=== PATIENT | female | born 1955 | race Asian ===

== ENCOUNTER → 2016-09-09 16:41 | Outpatient (CLI) | payer OTHER ==
[2011-06-11 08:55] VITALS: BMI 19.5
== END | disposition home or self-care (01) ==
LOC: D.MAMMO 08-18 11:30
DX: Z12.31 Encounter for screening mammogram for malignant neoplasm of breast (principal)

== ENCOUNTER → 2019-07-13 10:00 | Outpatient (CLI) | payer OTHER ==
[2011-06-11 08:55] VITALS: BMI 19.5
== END | disposition home or self-care (01) ==
LOC: D.MAMMO 07-04 09:30
PROVIDERS: ATTEND Family Medicine
DX: Z12.31 Encounter for screening mammogram for malignant neoplasm of breast (principal)

== ENCOUNTER 2019-11-10 01:27 | Inpatient (IN) | payer OTHER ==
[~2019-11-10] VITALS: Ht 144.8 cm; Wt 47.5 kg
--- NOTE | ~2019-11-10 | HEMODYNAMI ---
PATIENT:ANDRE MITTAL MEDICAL RECORD: [id number] : 59 [facility] AD[facility]ION DATE: 11/10/19 Generatedon:11/10/201911:07 Patient name: ANDRE MITTAL Patient #: [id number] SSN: [id number] : 1955 Date of study: 11/10/2019 Page: Of Hemodynamic Procedure Report Patient Data Patient Demographics Procedure consent was obtained First Name: ANDRE Gender: Female Last Name: KYRIE : 1955 [facility] Initial: B Age: 64 year(s) Patient #: [id number] Race: SSN: [id number] Additional ID: [id number] Contact details Address: [address] [place] [address] [facility] State: [place] City: [place] Zip code: [address] Past Medical History History of disease Date Diagnosis Comments Hypertension Allergies: No known allergies Admission Admission Data Admission Date: 11/10/2019 Admission Time: 2:41 Admit Source: Other Insurance Payor: Private Room #: D.2119 health insurance Height (in.): 48 BSA: 1.16 (m2) Height (cm.): 121.92 BMI: 28.99 (kg/m2) Weight (lbs.): 95 Weight (kg.): 43.09 Lab Results Lab Result Date: 11/10/2019 Lab Result Time: 0:00 Biochemistry Name Units Result Min Max Creatinine mg/dl 1.2 --(---*)-- 0.6 1.3 eGFR ml/min 48 *-(----)-- 90 120 NONAFRICAN CBC Name Units Result Min Max Hematocrit % 40.8 -*(----)-- 42 54 Hemoglobin g/dl 14.7 --(-*--)-- 13.5 17.5 Procedure Procedure Types Cath Procedure Diagnostic Procedure LHC LH w/Coronaries Sedation Charges Moderate Sedation up to 15 minutes Peripheral Cath Diagnostic Procedure Senior Php Software Developer Peripheral Procedures Four Vessel Arteriogram Procedure Description Procedure Date Procedure Date: 11/10/2019 Procedure Start Time: 10:41 Procedure End Time: 11:02 Procedure Staff Name Function Dat Vaz MD Performing Physician Lola Garcia RT Monitor Raquel Neal RN Nurse Mana Seaman RT Scrub Indication Syncope Procedure Data Cath Procedure Fluoroscopy Diagnostic fluoroscopy Total fluoroscopy Time: 5.2 time: 5.2 min min Diagnostic fluoroscopy Total fluoroscopy dose: 310 dose: 310 mGy mGy Contrast Material Contrast Material Type Amount (ml) Isovue 300 102 Entry Location Entry Primary Successful Side Size Upsize Upsize Entry Closure Succes sful Closure Location (Fr) 1 (Fr) 2 (Fr) Remarks Device Remarks Femoral Right 5 Fr Exoseal artery Estimated blood loss: 5 ml Diagnostic catheters Device Type Used For End Catheter Placement MULTIPACK JL 4.0 5Fr Procedure catheter DIAGNOSTIC JL 3.5 5Fr Procedure catheter ([id number]) MULTIPACK 3DRC 5Fr Procedure catheter MULTIPACK Pigtail 5 Fr Procedure catheter Procedure Complications No complications Procedure Medications Medication Administration Route Dosage 0.9% NaCl I.V. 100 ml/hr Oxygen etCO2 Nasal cannula 2 l/min Lidocaine 2% added to field 20 Heparin Flush Bag added to field 2 bags (1000units/500ml NS) Versed I.V. 1 mg Fentanyl I.V. 25 mcg Versed I.V. 1 mg Fentanyl I.V. 25 mcg Hemodynamics Rest BSA: 1.16 (m2) HGB: 14.7 (g/dl) O2 Consumption: Estimated: 122.94 (ml/min) O2 Co nsumption indexed: Estimated:105.98 (ml/min/m) Heart Rate: 101 (bpm) Pressure Samples Time Site Value (mmHg) Purpose Heart Use Rate(bpm) 10:54 LV 114/3,8 Snapshot 77 Gradients Valve Time Site Site Mean SEP/DFP Peak To Heart Use 1 2 (mmHg) (sec/min) Peak Rate (mmHg) (bpm) Aortic 10:54 LV AO 77 Snapshots Pre Cath Intra NCS Post Cath Vital Signs Time Heart Resp SPO2 etCO2 NIBP (mmHg) Rhythm Pain Sedation Rate (ipm) (%) (mmHg) Status Level (bpm) 10:27:11 103 22 99 31 183/95(125) ST 0 (11) 10(A) , No pain 10:31:36 94 19 100 32.2 172/83(123) NSR 0 (11) 10(A) , No pain 10:35:58 95 24 100 34.4 172/81(123) NSR 0 (11) 10(A) , No pain 10:40:20 91 16 100 34.4 157/78(124) NSR 0 (11) 10(A) , No pain 10:44:42 80 13 100 18.6 131/63(100) NSR 0 (11) 10(A) , No pain 10:48:56 71 12 100 17.9 114/58(88) NSR 0 (11) 10(A) , No pain 10:53:02 73 14 100 11.2 110/63(91) NSR 0 (11) 10(A) , No pain 10:57:08 71 12 100 35.9 117/58(90) NSR 0 (11) 10(A) , No pain 11:01:18 72 15 100 29.2 107/54(89) NSR 0 (11) 10(A) , No pain Medications Time Medication Route Dose Verified Delivered Reason Notes Eff ectiveness by by 10:23:58 0.9% NaCl I.V. 100 Dat Raquel used for ml/hr Milind Ángel procedure MD SALAZAR 10:24:04 Oxygen etCO2 2 Dat Raquel used for Nasal l/min Milind Ángel procedure cannula RN 10:24:08 Lidocaine 2% added 20ml Dat Dat for local to vial [facility] anesthetic field MD RAI 10:24:14 Heparin Flush added 2 Dat Dat used for Bag to bags [facility] procedure (1000units/500ml field MD RAI NS) 10:41:01 Versed I.V. 1 mg Dat Raquel for Milind Ángel sedation MD SALAZAR 10:41:08 Fentanyl I.V. 25 Dat Raquel for mcg Milind Ángel sedation MD SALAZAR 10:47:00 Versed I.V. 1 mg Dat Raquel for Milind Ángel sedation MD SALAZAR 10:47:08 Fentanyl I.V. 25 Dat Raquel for mcg Milind Ángel sedation MD SALAZARdental technician Log Time Note 9:50:17 Informed consent obtained and on chart 9:51:20 Indication : Syncope 10:03:54 ACC Patient presents with No angina; no symptoms CCS Anginal Class 2--Slight limitation of ordinary activity. 10:04:00 ACCPatient has been prescribed/administered the following anti-anginal medication within the last 2 weeks: None 10:04:03 Procedure Status Urgent Heart Cath (IP). 10:04:05 Lola Garcia RT(R) sent for patient. Start room use. 10:04:11 Time tracking: Call back (After hours or weekends) 10:04:16 Plan of Care:Hemodynamics will remain stable., Cardiac rhythm will remain stable., Comfort level will be maintained., Respiratory function will remain adequate., Patient/ family verbilizes understanding of procedure., Procedure tolerated without complication., Recovers from procedure without complications.. 10:04:23 H&P Date Dictated: 11/10/2019 Within 30 days and on chart.. 10:04:33 Patient NPO since Midnight. 10:04:46 Patient allergic to No known allergies 10:04:48 Is the patient allergic to Iodine/contrast media? No. 10:04:50 Was the patient premedicated? N/A 10:04:52 Is patient on blood thinner?Yes 10:05:59 ACC The patient was administered the following blood thiners within the last 24 hours: ACCLovenox 10:06:52 Patient diabetic? No. 10:06:54 If diabetic: On Metformin? N/A 10:06:57 Patient not . Patient is over age 55. 10:07:33 Lab Result : Creatinine 1.2 mg/dl 10:07:33 Lab Result : eGFR NONAFRICAN 48 ml/min 10:07:33 Lab Result : Hemoglobin 14.7 g/dl 10:07:33 Lab Result : Hematocrit 40.8 % 10:07:38 Lab results completed and on chart. 10:07:42 Stress Test: no; N/A ? 10:07:50 Diagnostic Cath Status : Urgent 10:08:03 Patient Height : 48 inches 10:08:06 Patient Weight : 95 lbs 10:08:12 Insurance Payor : Private health insurance 10:11:45 Risk of Mortality: 7.2 10:11:49 Risk of blood transfusion: 2.8 10:11:51 Risk of ANGELA: 12.3 10:12:04 Use device set Femoral Dx 10:12:08 ACIST Syringe (77449) opened to sterile field. 10:12:08 Bag Decanter (2002S) opened to sterile field. 10:12:12 DIAGNOSTIC Multipack 5Fr catheter set ([id number]) opened to sterile field. 10:12:14 ACIST Hand Control (43896) opened to sterile field. 10:12:14 ACIST Manifold (26014) opened to sterile field. 10:12:17 SHEATH 5FR Toyah (GNN759) opened to sterile field. 10:12:18 EMERALD Guide Wire (563-874) opened to sterile field. 10:12:23 Medline Cath Pack ([id number]) opened to sterile field. 10:12:42 Admit Source: Other 10:19:29 Patient received from Med II to CCL 1 Alert and oriented. Tansferred to table in Supine position. 10:19:33 Full Disclosure recording started 10:19:53 IV patent on arrival in left hand with 0.9% NaCl at KVO. 10:20:03 Pre-procedure instructions explained to patient. 10:20:06 Pre-op teaching completed and patient verbalized understanding. 10:20:13 Family unavailable. 10:20:25 Warm blankets applied, and elise hugger turned on for patient comfort. 10:20:27 Correct patient and procedure confirmed by team. 10:20:28 ECG and BP/O2 sat monitors applied to patient. 10:23:58 0.9% NaCl 100 ml/hr I.V. was administered by Raquel Nael RN; used for procedure; Verbal order read back and verified. 10:24:04 Oxygen 2 l/min etCO2 Nasal cannula was administered by Raquel Neal RN; used for procedure; Verbal order read back and verified. 10:24:08 Lidocaine 2% 20ml vial added to field was administered by Dat Vaz MD; for local anesthetic; Verbal order read back and verified. 10:24:14 Heparin Flush Bag (1000units/500ml NS) 2 bags added to field was administered by Dat Vaz MD; used for procedure; Verbal order read back and verified. 10:24:31 Previous problem with sedation/anesthesia? No ? 10:24:33 Snore? Yes 10:24:35 Sleep apnea? No 10:24:38 Deviated septum? No 10:24:39 Opens mouth fully? Yes 10:24:41 Sticks out tongue? Yes 10:25:02 Airway obstruction? No ? 10:25:07 Dentures? Yes out 10:25:31 Pre procedure: right dorsailis pedis pulse 2+ Normal; easily identifiable; not easily obliterated 10:25:35 Patient pain scale 0/10 ?. 10:25:55 Right groin area was prepped with chlora-prep and draped in sterile fashion 10::56 Sharps counted by scrub and verified by R.N. 10::56 Alarms reviewed by R. N. 10::03 Vital chart was started 10:26:05 Baseline sample Acquired. 10::13 Rhythm: sinus tachycardia 10:39:36 Zero performed for pressure channel P1 10::39 --------ALL STOP TIME OUT------ 10:39 Final Timeout: patient, procedure, and site verified with staff and physician. All members of the team are in agreement. 10:39:41 Right groin site verified by team. 10:39:44 Fire Safety Assessment: A--An alcohol-based skin anteseptic being used preoperatively., C--Open oxygen or nitrous oxide is being used., D--An ESU, laser, or fiber-optic light is being used. 10:39:47 Physical assessment completed. ASA score P 2 - A patient with mild systemic disease as per Dat Vaz MD. 10:39:51 3a) 45-59 Moderately reduced kidney function. 10:39:55 Maximum allowable contrast dose (3.7 X eGFR X 0.75)133 ml. 10:40:01 Sedation plan: IV Moderate Sedation Medication:Versed, Fentanyl 10::01 Versed 1 mg I.V. was administered by Raquel Neal RN; for sedation; Verbal order read back and verified. 10:41:08 Fentanyl 25 mcg I.V. was administered by Raquel Neal RN; for sedation; Verbal order read back and verified. 10:41:25 Procedure started. 10:41:27 Zero performed for pressure channel P1 10:41:43 Zero performed for pressure channel P1 10:41:59 Local anesthetic to right femoral artery with Lidocaine 2% by Dat Vaz MD.INITIAL ACCESS ONLY 10:43:02 A 5 Fr sheath was inserted into the Right Femoral artery 10:43:11 A MULTIPACK JL 4.0 5Fr catheter was advanced over the wire and used for Procedure. 10:44:24 Catheter removed. 10:45:20 A DIAGNOSTIC JL 3.5 5Fr catheter ([id number]) was advanced over the wire and used for Procedure. 10:46:59 LCA angiography performed. 10:47:00 Versed 1 mg I.V. was administered by Raquel Neal RN; for sedation; Verbal order read back and verified. 10:47:08 Fentanyl 25 mcg I.V. was administered by Raquel Neal RN; for sedation; Verbal order read back and verified. 10:47:32 Catheter removed. 10:47:44 A MULTIPACK 3DRC 5Fr catheter was advanced over the wire and used for Procedure. 10:49:07 RCA angiography performed. 10:49:09 ACCDominant side:Right 10:49:24 Left carotid angiography performed. 10:51:45 Right carotid angiography performed. 10:52:33 Catheter removed. 10:52:45 A MULTIPACK Pigtail 5 Fr catheter was advanced over the wire and used for Procedure. 10:53:07 LV gram done using GOTTLIEB 10:53:09 Injector settings: Ml/sec: 10, Volume: 20, 10:54:13 LV hemodynamics recorded. 10:54:18 EF : 55 % 10:54:32 Catheter removed. 10:55:37 EXOSEAL 5Fr (EX500) opened to sterile field. 10:56:24 Sheath removed intact; hemostasis achieved with Exoseal to the Right Femoral artery. 10:58:18 Procedure ended.(Physican Out) 10:59:41 Fluoroscopy time 05.20 minutes. 10:59:45 Fluoroscopy dose: 310 mGy 10:59:45 Flurop Dose total: 310 11:00:08 Dose Area Product 86427 mGy/cm. 11:00:14 Contrast amount:Isovue 300 102ml. 11:00:16 Maximum allowable dose exceeded? No. 11:00:18 Sharps counted by scrub and verified by R.N. 11:00:20 Post-op/insertion site Right Femoral artery dressed using a 4 x 4 and Tegaderm. 11:00:22 Post-procedure physical assessment completed. ASA score P 2 - A patient with mild systemic disease as per Dat Vaz MD. 11:00:25 Post procedure rhythm: sinus rhythm 11:00:27 Estimated blood loss: 5 ml 11:00:28 Post procedure instruction explained to patient.Patient verbalizes understanding. 11:00:28 Patient needs reinforcement of post procedure teaching. 11:01:25 Procedure type changed to Cath procedure, Diagnostic procedure, LHC, LHC w/Coronaries, Sedation Charges, Moderate Sedation up to 15 minutes, Peripheral Cath Diagnostic Procedure, Senior Php Software Developer Peripheral Procedures, Four Vessel Arteriogram 11:01:54 Procedure and supply charges have been captured, reviewed, submitted and are correct. 11:01:58 Procedure Complication : No complications 11:02:00 Vital chart was stopped 11:02:01 [facility] Findings: MVD- CABG consult 11:02:03 Operative report dictated upon procedure completion. 11:02:03 See physician's report for complete and final results. 11:02:04 Report given to Med II. 11:02:08 Patient transfered to Med II with Bed. 11:02:12 Procedure ended. 11:02:12 Full Disclosure recording stopped 11:02:15 End room use (Document Last) 11:06:47 End room use (Document Last) 11:07:03 End room use (Document Last) Device Usage Item Name Manufacture Quantity Catalog Hospital Part Current Minimal L ot# / Number Charge Number Stock Stock Serial# Code ACIST Acist 1 59300 [id number] 716020 [id number] 20 Syringe Medical (97235) Systems Inc Bag Microtek 1 253062 82582 664949 5 Decanter Medical Inc. () DIAGNOSTIC Cardinal 1 [id number] 180982 54405 320845 30 Multipack Health 5Fr catheter set (AG3284) ACIST Hand Acist 1 25203 231100 322929 736370 5 Control Medical (28086) Systems Inc ACIST Acist 1 79968 198159 127575 008910 5 Manifold Medical (04543) Systems Inc SHEATH 5FR Terumo 1 PMF015 060378 573790 635954 5 Toyah (JZS059) EMERALD Cardinal 1 651-817 167038 530717 261970 5 Guide Wire Simple IT (692-476) Medline Medline 1 [id number] 527144 03356 250714 5 Cath Pack ([id number]) MULTIPACK Cardinal 1 842372 5 JL 4.0 5Fr Health catheter DIAGNOSTIC Cardinal 1 [id number] 765027 802247 307063 5 JL 3.5 5Fr Health catheter ([id number]) MULTIPACK Cardinal 1 132593 5 3DRC 5Fr Health catheter MULTIPACK Cardinal 1 197818 5 Pigtail 5 Health Fr catheter EXOSEAL 5Fr Cardinal 1 EX500 840330 598623 524509 10 (EX500) Health Signature Audit [place] Stage Time Signature Unsigned Intra-Procedure 11/10/2019 Lola Garcia 11:06:47 AM RT(R) Intra-Procedure 11/10/2019 Raquel Neal 11:07:03 AM RN Intra-Procedure 11/10/2019 Dat Tinsley 11:07:27 AM Shen [place]I [address] [place] [address]
[2019-11-10] MEDS ORDERED: LISINOPRIL20 MG PO (01:31)
[2019-11-10] MEDS ORDERED: BAYER CHEWABLE81 MG PO (01:31)
[2019-11-10 01:41] LABS: BASOPHILS 0.3 % (0-2); HEMATOCRIT 40.8 % (36.0-48.0); HEMOGLOBIN 14.7 g/dL (12-16); IMMATURE GRANULOCYTES 0.3 % (0-5); LYMPHOCYTES 18.8 % (15-50); MCH 31.9 pg (26.0-34.0); MCV 88.5 fL (80.0-100.0); MEAN PLATELET VOLUME 9.7 fL (7.4-10.4); MONOCYTES 4.9 % (2-11); NEUTROPHILS 73.7 % (40-80); PLATELET COUNT 236 10x3/uL (130-400); RBC 4.61 10x6/uL (4.00-5.40); RDW 12.8 % (11.5-14.5); WBC 11.9 10x3/uL (4.8-10.8)
[2019-11-10 01:49] LABS: ANION GAP 8.2 mmol/L (8-16); CARBON DIOXIDE 30.4 mmol/L (21.0-32.0); CREATININE - SERUM 1.2 mg/dL (0.6-1.3); POTASSIUM - SERUM 3.6 mmol/L (3.5-5.1)
[2019-11-10 01:50] LABS: APTT 28.4 SECONDS (22.8-39.4); INR 0.95 (0.85-1.17); PROTIME 12.7 SECONDS (11.6-15.0)
[2019-11-10 01:55] LABS: ALBUMIN 3.7 g/dL (3.4-5.0); BILIRUBIN - TOTAL 0.38 mg/dL (0.2-1.3); PROTEIN - SERUM 7.8 g/dL (6.4-8.2)
--- NOTE | 2019-11-10 02:10 | NUR ---
ATRAUMATIC INSERTION NGT 16FR TO RIGHT NARE, GASTRIC SPECIMEN RECEIVED.
[2019-11-10 02:25] LABS: CREATINE KINASE 267 UL (21-215); LIPASE 223 U/L (73-393)
[2019-11-10 02:26] LABS: TROPONIN-I 0.162 ng/mL (0.000-0.060)
[2019-11-10 02:27] LABS: CKMB 4.3 U/L (0.0-3.6)
[2019-11-10 03:13] LABS: BILIRUBIN NEGATIVE (NEGATIVE); GLUCOSE NEGATIVE (NEGATIVE); KETONE SMALL mg/dL (NEGATIVE); NITRITE NEGATIVE (NEGATIVE); UROBILINOGEN NORMAL (NORMAL)
[2019-11-10 06:42] LABS: CKMB 4.4 U/L (0.0-3.6); CREATINE KINASE 240 UL (21-215)
[2019-11-10 06:45] LABS: TROPONIN-I 0.217 ng/mL (0.000-0.060)
--- NOTE | 2019-11-10 07:00 | NUR ---
RECIEVED REPORT. ASSUMED CARE OF PATIENT. CALL LIGHT WITHIN REACH. PATIENT RESTING IN BED WITH IV FLUIDS INFUSING ORDERED. TELEMETRY SR, RATE OF 83. PATIENT HAS NO COMPLAINTS THIS AM. NO DISTRESS. DENIES NEEDS.
[2019-11-10 08:58] LABS: BASOPHILS 0.3 % (0-2); EOSINOPHILS 0.4 % (0-7); HEMATOCRIT 38.7 % (36.0-48.0); HEMOGLOBIN 13.5 g/dL (12-16); IMMATURE GRANULOCYTES 0.1 % (0-5); LYMPHOCYTES 19.7 % (15-50); MCH 30.9 pg (26.0-34.0); MCHC 34.9 g/dL (31.0-37.0); MCV 88.6 fL (80.0-100.0); MEAN PLATELET VOLUME 10.2 fL (7.4-10.4); MONOCYTES 5.6 % (2-11); NEUTROPHILS 73.9 % (40-80); PLATELET COUNT 241 10x3/uL (130-400); RBC 4.37 10x6/uL (4.00-5.40); RDW 12.8 % (11.5-14.5); WBC 11.2 10x3/uL (4.8-10.8)
[2019-11-10 09:15] LABS: ANION GAP 12.5 mmol/L (8-16); CALCIUM 8.1 mg/dL (8.5-10.1); CARBON DIOXIDE 24.5 mmol/L (21.0-32.0); CHOL - HDL RATIO 3.5 ratio (2.3-4.1); LDL-HDL RATIO 2.2 ratio (1.5-3.5)
[2019-11-10 09:41] VITALS: BP 133/62
--- NOTE | 2019-11-10 10:18 | NUR ---
PATIENT LEFT FOR MANAGER MEDIA AT THIS TIME. NO DISTRESS UPON LEAVING UNIT VIA BED.
--- NOTE | 2019-11-10 11:04 | NUR ---
RECEIVED REPORT FROM CONTRERAS IN [facility]. PATIENT IS A SURGICAL CONSULT. PATIENT HAS MULTI-VESSEL DISEASE AND DR.ST LYNN IS CONTACTING TYLER AND CHRISSY. PATIENT BACK TO UNIT SOON.
--- NOTE | 2019-11-10 11:15 | NUR ---
RECEIVED PATIENT BACK TO ROOM 2119 VIA BED FROM THE BENEFITS CONSULTANT. NO INTERVENTION, PATIENT ABLE TO SIT UP IN 2 HOURS. PERIPHERAL PULSES PATENT, RIGHT GROIN DRESSING CLEAN, DRY AND INTACT. NO HEMATOMA FORMATION NOTED. PATIENT RESTING WITH EYES CLOSED, EASILY AROUSED. NO FAMILY AT BEDSIDE AT THIS TIME. CALL LIGHT WITHIN REACH.
--- NOTE | 2019-11-10 11:36 | NUR ---
PATIENT SPOUSE AT BEDSIDE AND REPORTS JUST CALLED AND TOLD HIM THAT PATIENT WOULD NEED OPEN HEART SURGERY AND THE VASCULAR SURGEONS HAVE BEEN CONSULTED. PATIENT CONTINUES WITH EYES CLOSED, PERIPHERAL PULSES PATIENT, RIGHT GROIN FREE FROM HEMATOMA FORMATION. NO DISTRESS. VS STABLE.
[2019-11-10 11:49] VITALS: BMI 20.5
[2019-11-10 11:52] VITALS: BP 123/72
[2019-11-10 12:40] LABS: CKMB 4.1 U/L (0.0-3.6); CREATINE KINASE 222 UL (21-215)
[2019-11-10 12:44] LABS: TROPONIN-I 0.328 ng/mL (0.000-0.060)
--- NOTE | 2019-11-10 12:46 | NUR ---
LAB CALLED TO REPORT ELEVATED TROPONIN, PATIENT HAD CATH THIS AM, TROPONIN EXPECTED TO BE ELEVATED.
--- NOTE | 2019-11-10 14:55 | NUR ---
PATIENT SITTING UP IN BED CONSUMING SANDWHICH, CHIPS, AND FRUIT. TOLERATING MEAL WELL. PATIENTS SPOUSE AT BEDSIDE. CALL LIGHT WITHIN REACH. IV FLUIDS INFUSING ORDERED. NO DISTRESS.
[2019-11-10 16:09] VITALS: BP 134/68
--- NOTE | 2019-11-10 18:41 | NUR ---
PATIENT STATES SHE IS FEELING MUCH BETTER. PATIENT SPOUSE LEAVING AT THIS TIME. NO DISTRESS. CALL LIGHT WITHIN REACH.
[2019-11-10 20:29] VITALS: BP 139/77
--- NOTE | 2019-11-10 21:32 | NUR ---
BEDTIME MED IV PROTONIX ADMINISTERED. COMPUTER IN ROOM DOWN. USED RT COMPUTER.
[2019-11-11 04:44] VITALS: BP 151/63
[2019-11-11 05:17] LABS: BASOPHILS 0.2 % (0-2); EOSINOPHILS 4.3 % (0-7); HEMATOCRIT 33.2 % (36.0-48.0); HEMOGLOBIN 10.9 g/dL (12-16); IMMATURE GRANULOCYTES 0.2 % (0-5); LYMPHOCYTES 34.3 % (15-50); MCH 29.5 pg (26.0-34.0); MCHC 32.8 g/dL (31.0-37.0); MONOCYTES 8.7 % (2-11); NEUTROPHILS 52.3 % (40-80); PLATELET COUNT 208 10x3/uL (130-400); RBC 3.69 10x6/uL (4.00-5.40); RDW 13.2 % (11.5-14.5); WBC 8.8 10x3/uL (4.8-10.8)
[2019-11-11 06:03] LABS: ANION GAP 7.8 mmol/L (8-16); BILIRUBIN - TOTAL 0.4 mg/dL (0.2-1.3); CALCIUM 7.6 mg/dL (8.5-10.1); CARBON DIOXIDE 26.8 mmol/L (21.0-32.0); POTASSIUM - SERUM 3.6 mmol/L (3.5-5.1)
[2019-11-11 06:04] LABS: ALBUMIN 2.4 g/dL (3.4-5.0); PROTEIN - SERUM 5.4 g/dL (6.4-8.2)
[2019-11-11 08:31] VITALS: BP 191/80
[2019-11-11 14:17] VITALS: Ht 144.8 cm; Wt 47.5 kg
--- NOTE | 2019-11-11 19:29 | NUR ---
INITIAL ROUNDS COMPLETED. PT DENIED ANY DISCOMFORT. CALL LIGHT WITHIN REACH.
[2019-11-11 20:30] VITALS: BP 183/87
--- NOTE | 2019-11-11 21:45 | NUR ---
PM MEDS GIVEN. PT DENIES ANY DISCOMFORT. CALL LIGHT WITHIN REACH.
[2019-11-12 00:30] VITALS: BP 138/59
--- NOTE | 2019-11-12 00:51 | NUR ---
PT RESTING WITH EYES CLOSED. RESP EVEN AND REGULAR. CALL LIGHT WITHIN REACH.
--- NOTE | 2019-11-12 03:00 | NUR ---
PT RESTING WITH EYES CLOSED. RESP EVEN AND REGULAR. CALL LIGHT WITHIN REACH.
--- NOTE | 2019-11-12 04:18 | NUR ---
PT AWAKE; DENIES ANY DISCOMFORT. CALL LIGHT WITHIN REACH.
[2019-11-12 05:00] VITALS: BP 165/66
--- NOTE | 2019-11-12 05:51 | NUR ---
VSS THROUGHOUT NIGHT. PT DENIED ANY DISCOMFORT. NEEDS MET; WILL CONTINUE TO MONITOR.
[2019-11-12 06:50] LABS: BASOPHILS 0.3 % (0-2); HEMATOCRIT 39.3 % (36.0-48.0); IMMATURE GRANULOCYTES 0.1 % (0-5); LYMPHOCYTES 25.6 % (15-50); MCH 30.2 pg (26.0-34.0); MCHC 33.8 g/dL (31.0-37.0); MCV 89.3 fL (80.0-100.0); MEAN PLATELET VOLUME 9.8 fL (7.4-10.4); PLATELET COUNT 230 10x3/uL (130-400); RDW 12.9 % (11.5-14.5); WBC 9.7 10x3/uL (4.8-10.8)
[2019-11-12 06:56] LABS: HEMOGLOBIN 13.3 g/dL (12-16)
[2019-11-12 07:14] LABS: ALBUMIN 3.4 g/dL (3.4-5.0); ANION GAP 9.7 mmol/L (8-16); BILIRUBIN - TOTAL 0.5 mg/dL (0.2-1.3); CALCIUM 8.3 mg/dL (8.5-10.1); CARBON DIOXIDE 27.8 mmol/L (21.0-32.0); CREATININE - SERUM 0.9 mg/dL (0.6-1.3); MAGNESIUM - SERUM 1.9 mg/dL (1.8-2.4); POTASSIUM - SERUM 3.5 mmol/L (3.5-5.1); PROTEIN - SERUM 7.4 g/dL (6.4-8.2)
--- NOTE | 2019-11-12 07:15 | NUR ---
RECEIVED PT IN BED AAOX4 RESP UNLABORED SKIN W/D COLOR WNL DENIES ANY NEEDS OR DISCOMFORT AT THIS TIME
[2019-11-12 08:30] VITALS: BP 165/72
--- NOTE | 2019-11-12 11:22 | OP ---
PATIENT NAME: ANDRE CRUZ MEDICAL RECORD: [id number] :59 LOCATION:D.M2 D.2119 ADMISSION DATE:11/10/19 SURGEON: ANDREA ROSS MD DATE OF OPERATION: 11/10/2019 PROCEDURE: Left heart catheterization, selective coronary angiography, four-vessel arteriography, right femoral artery approach. CATHETERS: A 5-Italian sheath, 5/4 left and right Neris, 5/4 pig. The procedure was well tolerated. The patient returned to the cruz. Sheath removed. ExoSeal device placed. FINDINGS: Left ventriculography in 30-degree GOTTLIEB view; normal wall motion. Normal systolic function. CORONARY ANATOMY: LEFT MAIN: Left main is free of disease. LAD: Has a mid proximal vessel stenosis of 80%, best seen in the GOTTLIEB cranial view. CIRCUMFLEX: Moderate sized circumflex has an 80% stenosis with takeoff of the first OM, good target distally. RIGHT CORONARY ARTERY: Has a diffuse stenosis, most severe being 80%. This was a proximal stenosis with good target distally. IMPRESSION: 1. A 3-vessel coronary artery disease. Preserved diastolic function. 2. Four-vessel arteriography using the right coronary catheter engage both common carotids selectively. Right common carotid was selectively engaged. This is smooth-walled vessel, free of disease. Right external carotid is smooth-walled vessel, free of disease. Right internal carotid is smooth-walled vessel, free of disease. 3. Catheter was withdrawn proximally and the left common carotid was selectively engage. This shows luminal plaquing with no significant stenosis. The left internal carotid does show probably 50% stenosis at its mid portion. Left external carotid, no significant disease. IMPRESSION: Can follow the carotid disease longitudinally with carotid Dopplers to make sure no progression on the left. We will consult CT surgery for coronary bypass grafting given coronary anatomy. TRANSINT:[id number] Voice Confirmation ID: [id number] DOCUMENT ID: [id number] ANDREA ROSS MD at 1122 CC: [id number] DICTATION DATE: 11/10/19 1136 INSPECTOR BALANCE BRIDGE: 11/10/19 2157 ADM IN [facility] [address] [place] [address]
--- NOTE | 2019-11-12 11:22 | CN ---
PATIENT NAME:ANDRE MITTAL MEDICAL RECORD: [id number] : 59 LOCATION:[facility] D.2119 ADMIT DATE: 11/10/19 ACCOUNT: [id number] CONSULTING PHYSICIAN: ANDREA ROSS MD REFERRING PHYSICIAN: ABI MALLORY MD DATE OF CONSULTATION: 11/10/2019 HISTORY OF PRESENT ILLNESS: A 64-year-old female with history of hypertension, hyperlipidemia, strong family history of coronary artery disease as well as cerebrovascular disease, admitted with chest pain, shortness of breath, syncope. The patient was found to have elevated cardiac enzymes consistent with NSTEMI, been noticing over the past 2-3 weeks increasing dyspnea on exertion to point of rest symptomology yesterday with leg, had a mojgan syncopal episodes. Has been having some visual changes consistent with amaurosis as well as numbness of both upper extremities. Strong family history of CVA with brother and sister having a CVA as well as brother having intervention to the coronary system. PAST MEDICAL HISTORY: 1. Hypertension. 2. Hyperlipidemia, currently on dietary and lifestyle modifications. ALLERGIES: None known. MEDICATIONS: Include lisinopril 20 mg p.o. every day, aspirin 81 every day. SOCIAL HISTORY: Nonsmoker, nondrinker. Does tries to exercise on a regular basis. Easily takes care of all her ADLs. REVIEW OF SYSTEMS: The patient reports easy bruising but reports no swollen glands. The patient reports no fever, no night sweats, no significant weight gain, no significant weight loss. No significant exercise tolerance. The patient reports no dry eyes, no irritation, no vision change. Patient reports no difficulty hearing and no ear pain. Patient reports no frequent nose bleeds or nose and sinus problems. Patient reports on arm pain on exertion. No shortness of breath while lying down. No history of heart murmur. Patient reports no cough, no wheezing or coughing up blood. Patient reports no abdominal pain, no vomiting. Normal appetite. No diarrhea and not vomiting blood. No nausea and no constipation. Patient reports no incontinence. No difficulty urinating. No hematuria. No increased frequency. Patient reports no muscle aches. No weakness, no arthralgias, no back pain. No swelling of the extremities. Patient reports no abnormal mole, no jaundice, no rashes. Reports no loss of consciousness. No weakness and no numbness. No seizures, dizziness, or headaches. The patient reports no depression, no sleep disturbance, feeling safe in a relationship and no alcohol abuse. Patient reports on fatigue. Reports no runny nose or sinus pressure. No itching, no hives, and no frequent sneezing. PHYSICAL EXAMINATION: GENERAL: Pleasant female in no acute distress, appears stated age. VITAL SIGNS: Blood pressure 133/62, pulse is 81 and regular. HEENT: Normocephalic, atraumatic. NECK: Questionable left carotid bruit. HEART: Regular, II/ systolic ejection murmur. LUNGS: Good air excursion. ABDOMEN: Soft, nontender. CONSULT REPORT [id number] ANDRE MITTAL EXTREMITIES: Pulses 2+. No edema. IMPRESSION: Non-ST segment elevation myocardial infarction, transient ischemic attack/syncope with amaurosis type symptomatology. PLAN: For angiography, four-vessel arteriography in the same setting. TRANSINT:[id number] Voice Confirmation ID: [id number] DOCUMENT ID: [id number] ANDREA ROSS MD at 1122 CC: [id number] DICTATION DATE: 11/10/19 1000 MANAGER OF HEALTH: 11/10/19 1403 ADM IN [facility] [address] [place] [address]
--- NOTE | 2019-11-12 11:22 | EC ---
PATIENT:ANDRE MITTAL DATE OF SERVICE: 11/10/19 SEX: F MEDICAL RECORD: [id number] DATE OF : [birth year] LOCATION:D. D.211 AGE OF PATIENT: 64 ADMISSION DATE: 11/10/19 REFERRING PHYSICIAN: INTERPRETING PHYSICIAN: ANDREA ROSS MD ECHOCARDIOGRAM REPORT ECHO CHARGES 4 ECHO COMPLETE Date: 11/10/19 CLINICAL DIAGNOSIS: SYNCOPE HTN ECHOCARDIOGRAPHIC MEASUREMENTS (adult normal given) AC root (d.<3.7cm) 3.4 cm LV Septum d (<1.2 cm> 1.0 cm Valve Excursion 1.8 cm LV Septum (systole) 1.5 cm Left Atria (s.<4.0cm> 2.8 cm LVPW d(<1.2cm) 1.1 cm RV (d.<2.3cm) 2.7 cm LVPW (sytole) 1.6 cm LV diastole(<5.6CM) 4.2 cm MV E-F(>70mm/sec) cm LV systole 2.2 cm LVOT Diameter 1.8 cm MV exc.(>10mm) 1.7 cm Est.ejection fraction (50-75%) % DOPPLER: LVIT cm/sec A 80.0 cm/sec E 76.0 cm/sec LA cm/sec RVSP 35 mmHg LVOT 85 cm/sec AOP1/2T m/s Asc. Ao 106 cm/sec RVOT 662 cm/sec RA cm/sec PA 78 cm/sec AV Gradient Peak 4.49 mmHg AV Mean 2.45 mmHg AV Area 1.9 cm MV Gradient Peak 3.81 mmHg MV Mean 1.34 mmHg MV Area cm COMMENTS: Rabble Furnace Tender: 2 JUSTIN IQBAL Metal Machine Operator: 3 Dr. Leal TAPE# PACS Pericardial Effusion N DATE OF SERVICE: Adequate 2D, color flow imaging, spectral Doppler, and M-Mode. No LVH. LV internal dimension is normal. Wall motion is normal. EF is greater than or equal 55%. Aortic valve is tricuspid. No evidence of stenosis by Doppler interrogation. Left atrium is normal. Mitral valve shows no prolapse. Trace MR. Right-sided chambers are grossly normal. Mild TR. TRANSINT:[id number] Voice Confirmation ID: [id number] DOCUMENT ID: [id number] ECHOCARDIOGRAM REPORT [id number] MITTAL,ANDREANDREA MAIN MD at 1122 CC: [id number] DICTATION DATE: 11/11/19 1005 SHOE STAINER: 11/11/19 1500 ADM IN [place] [id number] [place] [id number]
[2019-11-12 12:00] VITALS: BP 172/62
[2019-11-12 16:50] VITALS: BP 128/85
[2019-11-12 20:00] VITALS: BP 197/62
--- NOTE | 2019-11-12 20:06 | NUR ---
REPORT RECIEVED AND ROUNDING COMPLETE. PATIENT SITTING IN BED, NO DISTRESS NOTED. RIGHT WRIST PIV RUNNING FLUIDS, WEARING NASAL CANNULA WITH O2 GOING AT 2L. PATIENT IS A&O X4. PATIENT STATES SHES HAS NO NEEDS AT THIS TIME. CALL LIGHT WITHIN REACH AND BED IN LOWEST LOCKED POSITION.
[2019-11-13] VITALS (9 sets, daily range): BP systolic 140–208; BP diastolic 52–87
[2019-11-13 06:50] LABS: BASOPHILS 0.1 % (0-2); EOSINOPHILS 5.8 % (0-7); HEMATOCRIT 34.9 % (36.0-48.0); HEMOGLOBIN 11.8 g/dL (12-16); IMMATURE GRANULOCYTES 0.2 % (0-5); LYMPHOCYTES 25.5 % (15-50); MCH 29.6 pg (26.0-34.0); MCHC 33.8 g/dL (31.0-37.0); MCV 87.7 fL (80.0-100.0); MEAN PLATELET VOLUME 9.8 fL (7.4-10.4); MONOCYTES 8.3 % (2-11); NEUTROPHILS 60.1 % (40-80); PLATELET COUNT 220 10x3/uL (130-400); RBC 3.98 10x6/uL (4.00-5.40); RDW 12.7 % (11.5-14.5); WBC 8.7 10x3/uL (4.8-10.8)
[2019-11-13 07:01] LABS: ALBUMIN 2.9 g/dL (3.4-5.0); ANION GAP 11.3 mmol/L (8-16); BILIRUBIN - TOTAL 0.51 mg/dL (0.2-1.3); CALCIUM 8.1 mg/dL (8.5-10.1); CREATININE - SERUM 0.9 mg/dL (0.6-1.3); MAGNESIUM - SERUM 1.9 mg/dL (1.8-2.4); POTASSIUM - SERUM 3.3 mmol/L (3.5-5.1); PROTEIN - SERUM 6.4 g/dL (6.4-8.2)
--- NOTE | 2019-11-13 12:41 | NUR ---
Nutrition Follow-up: Good/fair PO intake. Noted pt ate ~50% of breakfast this AM. Noted plans for CABG once medically cleared for surgery by Dr. Tran. Diet: Cardiac PO intake: 75% avg x 6 meals Wt: 94# (11/12); 95# (11/09) Last recorded BM: 11/11 Labs noted: K+ 3.3, Ca 8.1, Alb 2.9 Meds noted: Protonix, HCTZ, electrolyte protocol -Encourage PO intake and honor food preferences within diet restrictions. -Monitor wt; noted daily wts ordered. -RD following.
[2019-11-13 16:20] LABS: BASOPHILS 0.3 % (0-2); EOSINOPHILS 5.8 % (0-7); HEMATOCRIT 37.8 % (36.0-48.0); HEMOGLOBIN 13.1 g/dL (12-16); IMMATURE GRANULOCYTES 0.2 % (0-5); LYMPHOCYTES 27.1 % (15-50); MCH 30.5 pg (26.0-34.0); MCHC 34.7 g/dL (31.0-37.0); MCV 87.9 fL (80.0-100.0); MEAN PLATELET VOLUME 9.7 fL (7.4-10.4); MONOCYTES 7.9 % (2-11); NEUTROPHILS 58.7 % (40-80); PLATELET COUNT 231 10x3/uL (130-400); RDW 12.7 % (11.5-14.5); WBC 8.7 10x3/uL (4.8-10.8)
[2019-11-13 16:32] LABS: ANION GAP 8.3 mmol/L (8-16); CALCIUM 8.6 mg/dL (8.5-10.1); CARBON DIOXIDE 28.5 mmol/L (21.0-32.0); CREATININE - SERUM 0.9 mg/dL (0.6-1.3); INR 0.89 (0.85-1.17); POTASSIUM - SERUM 3.8 mmol/L (3.5-5.1)
--- NOTE | 2019-11-13 16:44 | NUR ---
DR LOWE IN TO SEE PATIENT PRIMARY NURSE JESSE NEEDS ANOTHER IV TO LEFT ARM FOR CABG TOMORROW. HE (CHRISSY) ASKED THAT I CALL SURGERY FOR THEM TO RE-SITE IV TO LEFT ARM. I PAGED DR JOHNSON AND HE WILL BE UP TO SEE PATIENT FOR THIS.
[2019-11-13 16:47] LABS: ALBUMIN 3.2 g/dL (3.4-5.0); BILIRUBIN - TOTAL 0.27 mg/dL (0.2-1.3); PHOSPHOROUS 2.7 mg/dL (2.5-4.9); PROTEIN - SERUM 7.2 g/dL (6.4-8.2); T4 THYROXIN - FREE 1.22 ng/dL (0.76-1.46); THYROID STIMULATING HORMONE 2.66 uIU/mL (0.36-3.74); URIC ACID 4.1 mg/dL (2.6-7.2)
--- NOTE | 2019-11-13 17:37 | NUR ---
DR. HALL WILL START IV IN AM OF SURGERY. STATES TO LEAVE IV IN PLACE FOR NOW.
--- NOTE | 2019-11-13 20:19 | NUR ---
TRANFERED PATIENT TO CVICU VIA WHEELCHAIR. REPORT CALLED.
--- NOTE | 2019-11-13 20:30 | NUR ---
PT RECIEVED VIA W/C, PRESENT, PLACED IN BED, PT AMBULATES WITHOUT DIFFICULTY, PLACED ON MONITOR, GIVEN WARM BLANKET
[2019-11-14] VITALS (48 sets, daily range): BP systolic 100–181; BP diastolic 5–78
[2019-11-14 05:58] LABS: BILIRUBIN NEGATIVE (NEGATIVE); GLUCOSE NEGATIVE (NEGATIVE); KETONE NEGATIVE (NEGATIVE); NITRITE NEGATIVE (NEGATIVE); UROBILINOGEN NORMAL (NORMAL)
[2019-11-14 06:23] LABS: BASOPHILS 0.3 % (0-2); EOSINOPHILS 5.6 % (0-7); HEMATOCRIT 39.9 % (36.0-48.0); HEMOGLOBIN 13.8 g/dL (12-16); IMMATURE GRANULOCYTES 0.2 % (0-5); LYMPHOCYTES 21.7 % (15-50); MCHC 34.6 g/dL (31.0-37.0); MCV 86.7 fL (80.0-100.0); MEAN PLATELET VOLUME 9.7 fL (7.4-10.4); MONOCYTES 7.5 % (2-11); NEUTROPHILS 64.7 % (40-80); PLATELET COUNT 270 10x3/uL (130-400); RDW 12.6 % (11.5-14.5); WBC 9.2 10x3/uL (4.8-10.8)
[2019-11-14 06:34] LABS: ALBUMIN 3.4 g/dL (3.4-5.0); ANION GAP 10.7 mmol/L (8-16); BILIRUBIN - TOTAL 0.49 mg/dL (0.2-1.3); CARBON DIOXIDE 30.8 mmol/L (21.0-32.0); MAGNESIUM - SERUM 1.9 mg/dL (1.8-2.4); POTASSIUM - SERUM 3.5 mmol/L (3.5-5.1); PROTEIN - SERUM 7.7 g/dL (6.4-8.2)
--- NOTE | 2019-11-14 12:30 | NUR ---
Nutrition Follow-up: NPO for CABG today. Wt: 98.1# (11/13) Labs noted: Glu 124 Meds reviewed -Rec ADAT as medically feasible following surgery; if unable to advance within 24-48 hrs, rec consider nutrition support. -Monitor wt. -RD following.
--- NOTE | 2019-11-14 13:22 | NUR ---
PT ARRIVED IN THE UNIT. PT HOOKED TO ICU MONITORS. PT SEDATED AND ON THE VENT. 7.5 ETT 22 AT THE LIP NOTED. RIGHT IJ CVL NOTED. SEE IV FLOW SHEET FOR GTTS. MIDSTERNAL AND SUBSTERNAL DRESSING C/D/I. CT X2 BIFIRCATED TO A SINGLE CT NOTED CONNECTED TO 20 CM OF H2O SUCTION. NO AIR LEAK NOTED. LEFT SUBSTERAL BENY DRAIN NOTED COMPRESSED WITH NO DRAIANGE NOTED. TPM WIRES CONNCETED TO PACEMAKER. PT HEART PACING AT 80 BPM. TPM: AAI 80 A VOL10, A SENT 0.5. R RADIAL SANDEEP NOTED WITH GOOD WAVE FORM. WRIST PROTECTOR ON. CAP REFILL <3 SECONDS. FC NOTED WITH CLEAR, YELLOW URINE. RLE HARVESTED NOTED. COBAN FROM ANKLE TO THIGH. VSS AT THIS TIME. CALL LIGHT IN REACH. WILL CONT POC.
--- NOTE | 2019-11-14 13:45 | NUR ---
DR LOWE IN THE UNIT. TPM TURNED OFF. PT NSR RATE 68. VSS. TITRATING NITRO AND CLEVIPREX FOR HTN. CONT POC.
--- NOTE | 2019-11-14 17:08 | NUR ---
DR LOWE IN THE ROOM. GIVE 2.5 IV LOPRESSOR. OK TO GIVE AGAIN IF NEEDED.
--- NOTE | 2019-11-14 19:47 | NUR ---
1939--SBT PS 10 PEEP 5 PT RESPS 30+ BP 160+ VT 100-200 PT DID NOT SLOW RESPS WITH COACHING. THIS IS THE THIRD SBT ATTEMPT. EZIO HAD TRIED X 2 BEFORE CHANGE OF SHIFT WITH SIMILAR RESULTS. PLACED BACK ON SIMV. WILL CONT TO MONITOR.
--- NOTE | 2019-11-14 20:38 | NUR ---
PT EXTUBATED PER TELEPHONE ORDER, RT AT BEDSIDE AND REMOVED ETT AT 2024. PT TOLERATED WELL. VS STABLE. ON 4L N/C WITH RESPIRATIONS 21-25 BPM AND SPO2 100%, WILL TITRATE O2 TOLERATED. WILL CONTINUE TO OBSERVE.
--- NOTE | 2019-11-14 21:05 | NUR ---
ICE CHIPS GIVEN, TOLERATED WELL WITH NO S/S OF ASPIRATION NOTED. WILL CONTINUE TO OBSERVE.
--- NOTE | 2019-11-14 23:14 | NUR ---
LATE ENTRY--[address] LOWE, HE FEELS PT ANXIETY IS AMPLIFIED BY ETT. WOULD LIKE PT TO BE EXTUBATED. PT IS AWAKE, ALERT AND FOLLOWING COMMANDS.
[2019-11-15] VITALS (56 sets, daily range): BP systolic 114–159; BP diastolic 43–79
--- NOTE | 2019-11-15 01:15 | NUR ---
PT RESTING WITH EYES CLOSED AND CHEST RISING. EASILY AWOKEN TO VERBAL STIMULI. NO CONCERNS NOTED. PT DRINKING WATER WITHOUT DIFFICULTY. WILL CONTINUE TO OBSERVE
[2019-11-15 05:35] LABS: BASOPHILS 0.1 % (0-2); EOSINOPHILS 0.1 % (0-7); HEMATOCRIT 38.2 % (36.0-48.0); HEMOGLOBIN 13.1 g/dL (12-16); IMMATURE GRANULOCYTES 0.3 % (0-5); MCH 30.1 pg (26.0-34.0); MCHC 34.3 g/dL (31.0-37.0); MCV 87.8 fL (80.0-100.0); MEAN PLATELET VOLUME 9.8 fL (7.4-10.4); MONOCYTES 10.5 % (2-11); RBC 4.35 10x6/uL (4.00-5.40); RDW 13.3 % (11.5-14.5)
[2019-11-15 05:39] LABS: PLATELET COUNT 140 10x3/uL (130-400); WBC 15.9 10x3/uL (4.8-10.8)
[2019-11-15 06:05] LABS: ALBUMIN 2.8 g/dL (3.4-5.0); ALKALINE PHOSPHATASE 32 U/L (30-120); ALT (SGPT) 19 U/L (10-68); CALC OSMOLALITY 290 mosm/kg (275-300); CALCIUM 7.4 mg/dL (8.5-10.1); CARBON DIOXIDE 24.7 mmol/L (21.0-32.0); CHLORIDE - SERUM 111 mmol/L (98-107); CREATININE - SERUM 0.8 mg/dL (0.6-1.3); GLUCOSE 150 mg/dL (74-106); MAGNESIUM - SERUM 2.4 mg/dL (1.8-2.4); PHOSPHOROUS 4.1 mg/dL (2.5-4.9); POTASSIUM - SERUM 3.9 mmol/L (3.5-5.1); PROTEIN - SERUM 5.5 g/dL (6.4-8.2); SODIUM 145 mmol/L (136-145); UREA NITROGEN 11 mg/dL (7-18); eGFR NON AFRICAN AMERICAN 77 mL/min (90-120)
--- NOTE | 2019-11-15 07:50 | OP ---
PATIENT NAME: ANDRE MITTAL MEDICAL RECORD: [id number] :59 LOCATION:[facility] ADMISSION DATE:11/10/19 SURGEON: DOC LOWE MD DATE OF OPERATION: 11/14/2019 SURGEON: Doc Lowe MD PROCEDURE PERFORMED: 1. Coronary artery bypass graft times 4 (left internal mammary to LAD, reverse saphenous vein graft from aorta to first diagonal, aorta to first obtuse marginal, aorta to right coronary artery). 2. Endoscopic saphenous vein harvest. PREOPERATIVE DIAGNOSES: Coronary artery disease, TIA, and congenital diminutive left internal carotid. POSTOPERATIVE DIAGNOSES: Coronary artery disease, TIA, and congenital diminutive left internal carotid. ANESTHESIA: General endotracheal anesthesia. ESTIMATED BLOOD LOSS: Total cardiopulmonary bypass with Cell Saver retransfusion and 2 packed red blood cells. COMPLICATIONS: None. SPECIMENS: None. CONDITION: Stable. DISPOSITION: CV ICU. OPERATIVE FINDINGS: 1. Good quality, but thin walled vein, right lower extremity multiple thin sites oversewn. 2. Transesophageal echocardiography 1+ mitral regurgitation unchanged after coronary artery bypass graft, good contractility. 3. Good quality left internal mammary artery. The LAD was 1.5 mm vessel with severe diffuse disease. 4. First diagonal had severe diseased 1.5 mm vessel, the smallest caliber portion of the vein was used for this graft. 5. The bifurcating large obtuse marginal had severe disease up to the bifurcation. The tortuous middle vessel was the largest and the graft was laid just on the distal part of the bifurcation. 6. Right coronary artery 2.0 mm with severe disease. 7. Bradycardia required atrial pacing off cardiopulmonary bypass. INDICATION FOR OPERATION: Multivessel coronary disease including left main coronary stenosis with myocardial infarction. OPERATIVE SUMMARY IN DETAIL: The patient was brought to the operative suite. General anesthesia was obtained. The patient was prepped and draped. Greater saphenous vein harvested endoscopically to right lower extremity. Side branches were divided with electrocautery. The vessel was ligated proximally and distally, removed. Side branches were tied and the thin sites or leakage sites OPERATIVE REPORT [id number] ANDRE MITTAL were oversewn. The leg was closed in 2 layers. Median sternotomy incision was made. Subcutaneous tissue was divided by electrocautery. Sternum was divided with a saw. The left hemisternum was elevated. Left pleural cavity was entered. Left internal mammary and vein were taken down as a pedicle graft. The sternal retractor was placed. Pericardium was opened. Heparin was given. The aorta was cannulated. Dual stage venous cannula was inserted. The internal mammary was clipped distally. The patient was placed in cardiopulmonary bypass. Sites for distal anastomoses were selected. Antegrade cardioplegia cannula was inserted. The patient's temperature drifted downwardly. Crossclamp was placed. Cardioplegia was given antegrade and this was repeated at 15-minute intervals during the crossclamp time. Distal anastomosis was performed in standard technique. Proximal anastomosis with single cross-clamp technique. The aortic root was de-aired by removing the crossclamp venting the root, tying the proximal anastomosis, de-airing the vein grafts and restoring the flow. Proximal and distal anastomotic sites inspected for bleeding. Single sutures in the diagonal proximal. Irrigation was performed gradually appropriately. Hemostasis was ensured. The patient was weaned from cardiopulmonary bypass and was stable. The patient was decannulated. Aortic cannulation site was oversewn. Protamine was given. Drains were placed in mediastinum with the tip in the right pleural cavity, one in the left pleural cavity. The Pericardial fat was loosely reapproximated in the midline. Left chest was evacuated and irrigated. The internal mammary harvest site was inspected for bleeding. Doppler signal in the internal mammary artery was excellent below 4 and after giving heparin. Sternum was closed with wires. Fascia was closed. Subcutaneous tissues were closed. Skin was closed. Dermabond was placed. The needle and sponge counts were correct and the patient was taken to ICU in stable condition. TRANSINT:[id number] Voice Confirmation ID: [id number] DOCUMENT ID: [id number] DOC LOWE MD at 0750 CC: QUENTIN RIEVRA and ANDREA ROSS MD [id number] DICTATION DATE: 11/14/19 1432 PEG DRIVER: 11/15/19 0047 ADM IN [place] [id number] [place] [id number]
--- NOTE | 2019-11-15 08:35 | NUR ---
0700 PT RECIEVED UP IN CHAIR ALERT AND ORIENTED VSS DENIES ALL NEEDS, R IJ CVL DRESSING CDI, R RADIAL A LINE GOOD WAVEFORM WRIST PROTECTOR IN PLACE, MIDSTERNAL AND SUBSTERNAL DRESSINGS CDI SUBSTERNAL TPM WIRES ATTACHED AND TPM OFF, BENY DRAIN COMPRESSED, CTX2 Y'D TOGETHER TO 20CM SUCTION NO AIR LEAK, BLOODY DRAINAGE, AMIN DRAINING YELLOW URINE [address] CHRISSY FENG TO LET BP TO SYSTOLIC 160, DC A LINE 0830 AM MEDS TOLERATED WELL, JELLO PROVIDED FOR BREAKFAST PER REQUEST
--- NOTE | 2019-11-15 09:10 | NUR ---
A LINE DCD TIP INTACT NO SIGNS OF BLEEDING
--- NOTE | 2019-11-15 14:14 | NUR ---
DR. LOWE HERE CHEST TUBES REMOVED. BIO PATCH X 2 APPLIED AROUND PACEMAKER WIRES. PACERMAKER WIRES REMOVED FROM BATTERY. BETADINE TO CHEST TUBE SITE. STERILE 4X4 APPLIED. SECURE WITH TEGRADERM X 2 PATIENT TOLERATED FAIR.
--- NOTE | 2019-11-15 16:00 | NUR ---
RESTING IN BED. NO DISTRESS. DRESSING DRY AND INTACT. RONALD DRAIN WITH MINIMAL DRAINAGE. AMIN CATH PATENT DRAINING CLEAR FLAQUITO URINE. MONITOR SR.
--- NOTE | 2019-11-15 16:30 | NUR ---
UP IN CHAIR AT BEDSIDE. AMBULATES WELL. GAIT FAIR. TOLERATED WELL. SUPER TRAY SERVED FEEDING SELF AND CUTTING UP MEAT ON TRAY. AT BEDSIDE. AMIN CATH PATENT AND DRAINING CLEAR FLAQUITO URINE. RONALD DRAIN INTACT. NO DISTRESS
--- NOTE | 2019-11-15 18:19 | NUR ---
ATE WELL. UP IN CHAIR AT BEDSIDE NO DISTRESS
--- NOTE | 2019-11-15 19:30 | NUR ---
PT A/OX4, SITTING UP IN CHAIR, LUNGS CLEAR, O2 @ 2L VIA N/C, RIGHT IJ CVL INATACT AND SL, DRSG INTACT TO MIDSTERNAL INCISION AND SUBSTERNAL BENY DRAIN AND TPM WIRES, BRENNAN PATENT TO BSD, LEONORA'S TO BILAT LOWER LEGS, WATCHING TV WITH NO C/O
--- NOTE | 2019-11-15 22:56 | NUR ---
PT IN UCAF WITH HR 120'S TO 140, TEXTED DR LOWE TO NOTIFY
--- NOTE | 2019-11-15 23:08 | NUR ---
CALLED DR LOWE, INFORMED OF PT STATUS, RECIEVED ORDERS FOR AMIO BOLUS AND GTT, LABS DRAWN STAT
[2019-11-15 23:39] LABS: MAGNESIUM - SERUM 2.2 mg/dL (1.8-2.4)
[2019-11-16] VITALS (24 sets, daily range): BP systolic 98–130; BP diastolic 40–77
--- NOTE | 2019-11-16 04:00 | NUR ---
PT CONVERTED TO SINUS RHYTHM, SLEEPING QUIETLY WITH NO DISTRESS, WILL CONT TO MONITOR
[2019-11-16 05:22] LABS: HEMATOCRIT 35.8 % (36.0-48.0); MCH 29.7 pg (26.0-34.0); MCHC 33.5 g/dL (31.0-37.0); MCV 88.6 fL (80.0-100.0); RBC 4.04 10x6/uL (4.00-5.40); RDW 13.6 % (11.5-14.5); WBC 15.9 10x3/uL (4.8-10.8)
[2019-11-16 06:01] LABS: ALBUMIN 2.2 g/dL (3.4-5.0); ALKALINE PHOSPHATASE 38 U/L (30-120); ALT (SGPT) 18 U/L (10-68); CALC OSMOLALITY 276 mosm/kg (275-300); CALCIUM 7.9 mg/dL (8.5-10.1); CARBON DIOXIDE 30.6 mmol/L (21.0-32.0); CHLORIDE - SERUM 104 mmol/L (98-107); CREATININE - SERUM 0.7 mg/dL (0.6-1.3); GLUCOSE 141 mg/dL (74-106); PROTEIN - SERUM 5.2 g/dL (6.4-8.2); SODIUM 138 mmol/L (136-145); UREA NITROGEN 11 mg/dL (7-18); eGFR NON AFRICAN AMERICAN 90 mL/min (90-120)
--- NOTE | 2019-11-16 10:50 | NUR ---
Nutrition Follow-up: POD 2 CABG. Pt ate small amt of breakfast this AM. Denies N/V, chewing/swallowing difficulties. -BM. Diet: Cardiac Wt: 99.1# (11/15); 98.1# (11/13) Labs noted: Glu 141, Ca 7.9, PO4 2.0, Alb 2.2 Meds noted: Micro K, Protonix, Senokot, Colace -Encourage PO intake and honor food preferences within diet restrictions. -Offer nutrition supplements. -Monitor wt. -RD following.
--- NOTE | 2019-11-16 13:35 | NUR ---
DR. LOWE HERE. NEW ORDERS REC'D. BRENNAN AG'Maxi. ISABEL COOK DC'Maxi.
--- NOTE | 2019-11-16 19:00 | NUR ---
REPORT RECEIVED. RECEIVED PATIENT IN BED, RESTING WITH EYES CLOSED. EASILY ROUSED AND ALERT. ORIENTED X 4. ASSESSMENT COMPLETED PER FLOW SHEET WITH NO ACUTE DISTRESS OBSERVED. MONITORS CONNECTED TO PATIENT WITH ALARMS SET. VSS. CALL LIGHT IN REACH AND ABLE TO UTILIZE TO MAKE NEEDS KNOWN. BENY DRAIN INTACT/SECURE/PATENT/COMPRESSED WITH SMALL AMOUNT OF SEROSANGUINEOUS FLUID IN BULB. MIDSTERNAL AND SUBSTERNAL DRESSINGS CDI. WILL CONT CURRENT POC
--- NOTE | 2019-11-16 23:00 | NUR ---
RESTING WITH EYES CLOSED, EASILY ROUSED AND ALERT. VSS. REASSESSMENT COMPLETED PER FLOW SHEET WITH NO ACUTE DISTRESS OBSERVED. CALL LIGHT IN REACH
[2019-11-17] VITALS (24 sets, daily range): BP systolic 93–152; BP diastolic 51–75
--- NOTE | 2019-11-17 03:00 | NUR ---
RESTING WITH EYES CLOSED, EASILY ROUSED AND ALERT. VSS. REASSESSMENT COMPLETED PER FLOW SHEET WITH NO ACUTE DISTRESS OBSERVED. CONTINUE CURRENT POC. CALL LIGHT IN REACH.
--- NOTE | 2019-11-17 05:00 | NUR ---
RESTING WITH EYES CLOSED, EASILY ROUSED AND ALERT. VSS. CALL LIGHT IN REACH
[2019-11-17 05:53] LABS: HEMATOCRIT 33.1 % (36.0-48.0); HEMOGLOBIN 11.2 g/dL (12-16); MCH 30.2 pg (26.0-34.0); MCHC 33.8 g/dL (31.0-37.0); MCV 89.2 fL (80.0-100.0); MEAN PLATELET VOLUME 9.7 fL (7.4-10.4); RBC 3.71 10x6/uL (4.00-5.40); RDW 13.5 % (11.5-14.5); WBC 11.2 10x3/uL (4.8-10.8)
--- NOTE | 2019-11-17 06:00 | NUR ---
CHG BATH GIVEN. SUBSTERNAL DRSG CHANGED PER ORDER. ASSISTED UP TO BEDSIDE CHAIR. SIMRAN WELL. VSS.
[2019-11-17 06:05] LABS: ALBUMIN 2.1 g/dL (3.4-5.0); ANION GAP 7.8 mmol/L (8-16); BILIRUBIN - TOTAL 0.65 mg/dL (0.2-1.3); CALCIUM 7.6 mg/dL (8.5-10.1); CARBON DIOXIDE 31.2 mmol/L (21.0-32.0); CREATININE - SERUM 0.9 mg/dL (0.6-1.3); PHOSPHOROUS 2.3 mg/dL (2.5-4.9); PROTEIN - SERUM 5.3 g/dL (6.4-8.2)
--- NOTE | 2019-11-17 11:38 | NUR ---
1120: BENY DRAIN REMOVED BY DR. LOWE.
--- NOTE | 2019-11-17 21:00 | NUR ---
MEDS GIVEN PER MAR. VSS. NO SIGNS OF ACUTE DISTRESS NOTED.
--- NOTE | 2019-11-17 23:00 | NUR ---
2100 MEDS GIVEN PER MAR. VSS. 2300 REASSESSMENT DONE SEE FLOW SHEET VSS. NO SIGNS OF ACUTE DISTRESS NOTED.
[2019-11-18] VITALS (24 sets, daily range): BP systolic 111–176; BP diastolic 53–91
--- NOTE | 2019-11-18 03:33 | NUR ---
0100 PATIENT RESTING IN BED. VSS. 0300 REASSESSMENT DONE SEE FLOW SHEET VSS 0333 RADIOLOGY AT BEDSIDE.
--- NOTE | 2019-11-18 05:00 | NUR ---
0300 REASSESSMENT DONE SEE FLOW SHEET VSS 0500 IO COLLECTED. DAILY WEIGHT. ROOM FREED OF CLUTTER.
[2019-11-18 06:23] LABS: HEMOGLOBIN 12.6 g/dL (12-16); MCH 30.1 pg (26.0-34.0); MCHC 33.2 g/dL (31.0-37.0); MCV 90.7 fL (80.0-100.0); RBC 4.19 10x6/uL (4.00-5.40); RDW 13.8 % (11.5-14.5); WBC 9.9 10x3/uL (4.8-10.8)
[2019-11-18 06:38] LABS: ALBUMIN 2.2 g/dL (3.4-5.0); ALKALINE PHOSPHATASE 52 U/L (30-120); ALT (SGPT) 23 U/L (10-68); BILIRUBIN - TOTAL 0.62 mg/dL (0.2-1.3); CALC OSMOLALITY 276 mosm/kg (275-300); CALCIUM 7.9 mg/dL (8.5-10.1); CARBON DIOXIDE 29.4 mmol/L (21.0-32.0); CHLORIDE - SERUM 103 mmol/L (98-107); CREATININE - SERUM 0.8 mg/dL (0.6-1.3); GLUCOSE 108 mg/dL (74-106); PHOSPHOROUS 2.7 mg/dL (2.5-4.9); POTASSIUM - SERUM 3.7 mmol/L (3.5-5.1); PROTEIN - SERUM 6.1 g/dL (6.4-8.2); SODIUM 139 mmol/L (136-145); eGFR NON AFRICAN AMERICAN 77 mL/min (90-120)
[2019-11-18 06:39] LABS: UREA NITROGEN 8 mg/dL (7-18)
--- NOTE | 2019-11-18 17:37 | NUR ---
1600: R IJ DC'D. MANUAL PRESSURE HELD X 2 MIN AND SITE DRESSED WITH 2X2 AND TEGADERM.
--- NOTE | 2019-11-18 18:31 | NUR ---
ASSISTED TO BED -STATED DIZZY-NIBP 165/77-RESP RX STARTED
--- NOTE | 2019-11-18 20:10 | NUR ---
PT RECEIVED WITH EYES OPEN AND CHEST RISING. VITAL SIGNS STABLE. ASSISTED TO BATHROOM BY OTHER NURSE. NO OTHER NEEDS MADE KNOWN. CALL LIGHT IN REACH. WILL CONTINUE TO OBSERVE.
--- NOTE | 2019-11-18 22:26 | NUR ---
PT UP TO BATHROOM, STATES SHE NEEDS TO HAVE BM. REMINDED TO USE CALL LIGHT FOR ASSIST WHEN COMPLETE. PT USES CALL LIGHT AND UP TO BED. AMBULATES WITH STEADY GAIT. PT REPORTS JUST URINE AND FLATULANCE. WILL CONTINUE TO OBSERVE.
[2019-11-19] VITALS (24 sets, daily range): BP systolic 97–157; BP diastolic 47–83
[2019-11-19 07:05] LABS: HEMATOCRIT 35.9 % (36.0-48.0); HEMOGLOBIN 12.1 g/dL (12-16); MCH 30.5 pg (26.0-34.0); MCHC 33.7 g/dL (31.0-37.0); MCV 90.4 fL (80.0-100.0); MEAN PLATELET VOLUME 8.8 fL (7.4-10.4); RBC 3.97 10x6/uL (4.00-5.40); RDW 13.4 % (11.5-14.5); WBC 8.8 10x3/uL (4.8-10.8)
[2019-11-19 07:23] LABS: ALBUMIN 2.3 g/dL (3.4-5.0); ALKALINE PHOSPHATASE 52 U/L (30-120); ALT (SGPT) 20 U/L (10-68); BILIRUBIN - TOTAL 0.47 mg/dL (0.2-1.3); CALC OSMOLALITY 277 mosm/kg (275-300); CALCIUM 8.5 mg/dL (8.5-10.1); CARBON DIOXIDE 28.2 mmol/L (21.0-32.0); CHLORIDE - SERUM 104 mmol/L (98-107); CREATININE - SERUM 0.8 mg/dL (0.6-1.3); GLUCOSE 115 mg/dL (74-106); PHOSPHOROUS 3.3 mg/dL (2.5-4.9); POTASSIUM - SERUM 4.1 mmol/L (3.5-5.1); SODIUM 140 mmol/L (136-145); UREA NITROGEN 8 mg/dL (7-18); eGFR NON AFRICAN AMERICAN 77 mL/min (90-120)
--- NOTE | 2019-11-19 08:06 | TEE ---
PATIENT:ANDRE MITTAL MEDICAL RECORD: [id number] LOCATION:[place] [address] AGE OF PATIENT: 64 ADMISSION DATE: 11/10/19 SEX: F REFERRING PHYSICIAN: INTERPRETING PHYSICIAN: ANDREA ROSS MD TRANSESOPHAGEAL ECHOCARDIOGRAM Date: 11/14/19 [place] CHARGE Y INDICATIONS: CABG PREMEDICATIONS: PATIENT'S RESPONSE PROCEDURE DOPPLER MEASUREMENTS: LVIT LA PA 78 RA LVOT 85 RVOT 662 Asc. Ao 106 AV Gradient Peak 4.49 AV Mean 2.45 AV Area 1.9 MV Gradient Peak 3.81 MV Mean 1.34 MV Area INTERPRETATION: Doppler: 2-D: COLOR FLOW DOPPLER NORMAL SALINE STUDY: MISCELLANOUS: DIAGNOSIS: PLAN: Tank Builder:3 Dr. Leal Catalogue Compiler: Oneyda BAUER COMMENTS: DATE OF SERVICE: 11/15/2019 This is an intraoperative transesophageal note. Preop shows normal wall motion, normal contractility and normal EF. Aortic valve is tricuspid with good valve excursion. Left atrium appears normal. Mitral valve appears normal with good excursion. Trivial MR. Postop, again good valve excursion. EF is normal at 55%. Aortic valve is tricuspid with good valve excursion. No significant AI. Left atrium appears normal. Mitral valve TRANSESOPHAGEAL ECHOCARDIOGRAM REPORT [id number] ANDRE MITTAL has good excursion. No prolapse. Trivial MR. TRANSINT:[id number] Voice Confirmation ID: [id number] DOCUMENT ID: [id number] at 0806 CC: [id number] DICTATION DATE: 11/15/19 1503 RN CLINICAL: 11/15/19 1550 [place] [address]
--- NOTE | 2019-11-19 08:47 | NUR ---
0700 PT RECIEVED UP IN CHAIR ALERT AND ORIENTED VSS DENIES PAIN AND ALL NEEDS, ON ROOM AIR, SEE SHIFT ASSESSMENT FOR DETAILS 0845 TOOK AM MEDS WITHOUT DIFFICULTY AND ATE 75% BREAKFAST
--- NOTE | 2019-11-19 12:34 | NUR ---
1100 TPM WIRES REMOVED BY DR LOWE
--- NOTE | 2019-11-19 12:51 | NUR ---
Nutrition Follow-up: POD 5 CABG. Overall PO intake not very good but noted pt ate ~75% of breakfast this AM. Agreed to try Ensure. -BM; + flatus. Diet: Cardiac PO intake: 33% avg x 10 meals Wt: 105.8# (11/18); 95# (11/12) Labs noted: Glu 155, Alb 2.3 Meds noted: KDur, Protonix, Colace -Encourage PO intake and honor food preferences within diet restrictions. -Ensure sent with lunch today for pt trial. -Monitor wt. -RD following.
--- NOTE | 2019-11-19 17:26 | NUR ---
1300 PT ATE 50% LUNCH 1700 PT ATE 75% DINNER PT ABLE TO REPOSITION SELF, DENIES PAIN AND ALL NEEDS, VSS, WILL CONTINUE TO MONITOR
--- NOTE | 2019-11-19 19:00 | NUR ---
PT ASSESSMENT COMPLETED AT THIS TIME, NO CHANGES NOTED FROM NURSE REPORT, PT AAXO4, NO COMPLAINTS OF DISCOMFORT OR DISTRESS, VSS, WILL MONITOR FOR CHANGES
--- NOTE | 2019-11-19 21:00 | NUR ---
PT RESTING IN BED WATCHING TV, NO DISTRESS OR COMPLAINTS VOICED AT THIS TIME
--- NOTE | 2019-11-19 23:00 | NUR ---
PT REASSESSMENT COMPLETED AT THIS TIME, NO CHANGES NOTED FROM PREVIOUS EXAM, VSS
[2019-11-20] VITALS (10 sets, daily range): BP systolic 107–158; BP diastolic 58–89
--- NOTE | 2019-11-20 00:30 | NUR ---
PT REQUESTED PAIN MEDICINE, PRN PAIN GIVEN GIVE AT THIS TIME
--- NOTE | 2019-11-20 03:00 | NUR ---
PT REASSESSMENET COMPLETED AT THIS TIME NO CHANGES NOTED FROM PREVIOUS EXAM, VSS
--- NOTE | 2019-11-20 04:23 | NUR ---
AM ROUNDS COMPLETED. INTRODUCED MYSELF TO PT PRIMARY RN FOR TODAYS SHIFT. PT IS A&O SITTING UP IN BED RECIEVING HER BREATHING TREATMENT. PT IS VERY CHEERFUL AND STATES SHE SHOULD GET TO DISCHARGE TODAY SHE WAS ABLE TO HAVE A BOWEL MOVEMENT LAST NIGHT AND IS FEELING GOOD. WILL REVIEW CHART AND ORDERS AND SEE PLAN OF CARE FOR TODAY. NO IMMEDIATE NEEDS AT THIS TIME. WILL CTM.
--- NOTE | 2019-11-20 06:25 | NUR ---
PT UP TO AMBULATE TO BR. PT VOIDED CLEAR YELLOW URINE WITHOUT ANY DIFFICULTIES. PT NOW WANTS TO SIT UP IN BEDSIDE CHAIR. PT WAITING PATIENTLY ON BREAKFAST DRINKING HER COFFEE. PT STATES SHE SLEPT GREAT AND HOPES TO BE DISCHARGED LATER TODAY. NO CURRENT NEEDS AT THIS TIME. WILL CTM.
--- NOTE | 2019-11-20 08:08 | NUR ---
MORNING MEDICATIONS GIVEN AND PT SITTING UP IN BEDSIDE CHAIR EATING BREAKFAST. PT DENIES ANY CURRENT PAIN OR NEEDS AT THIS TIME. CL IN REACH, WILL CPOC.
[2019-11-20] MEDS ORDERED: AMIODARONE HCL200 MG PO (08:49)
[2019-11-20] MEDS ORDERED: LOPRESSOR25 MG PO (08:57)
[2019-11-20] MEDS ORDERED: LISINOPRIL2.5 MG PO (08:58)
[2019-11-20] MEDS ORDERED: PERCOCET 5-3251 TAB PO (09:03)
--- NOTE | 2019-11-20 09:52 | NUR ---
DR.FARO ADAM ATTENDING. PT IS STABLE AND VERY EAGER TO BE DISCHARGED WILL BEGIN DISCHARGE PAPERWORK AT THIS TIME. NO CURRENT NEEDS.
--- NOTE | 2019-11-20 11:02 | NUR ---
PTS HERE. READY TO GO OVER DISCHARGE INSTRUCTIONS. DISCHARGE TEACHING PROVIDED AND PAPERS SIGNED. PT VERBALIZED UNDERSTANDING AND DENIES ANY QUESTIONS OR CONCERNS. REMOVED DRSG FROM ABDOMEN SITES AND INCISIONS ARE CLEAN AND DRY NO S/S OF INFECTION OR DRAINING NOTED. CARDIOLOGY NURSE AT BEDSIDE TO COMPLETED DISCHARGE INSTRUCTIONS. PT GETTING DRESSED NOW. NO FURTHER NEEDS AT THIS TIME.
--- NOTE | 2019-11-20 11:50 | NUR ---
ESCORTED PT OUT AT THIS TIME. NO FURTHER NEEDS.
--- NOTE | 2019-11-20 23:04 | MORECARE ---
CASE MANAGEMENT DISCHARGE SUMMARY PATIENT: ANDRE MITTAL UNIT: [id number] ADM DATE: 11/10/19 AGE: 64 : 59 SEX: F ROOM/BED: [facility] AUTHOR: TROYDOC PHYSICIAN: REFERRING PHYSICIAN: ABI MALLORY MD DATE OF SERVICE: 11/20/19 Discharge Plan Patient Name: ANDRE MITTAL Facility: [facility]:[place] : 1955 Planned Disposition: Home Anticipated Discharge Date: Discharge Date: 11/20/2019 Expected LOS: Initial Reviewer: [email or web address] Initial Review Date: 11/10/2019 Generated: 11/21/19 12:03 am Comments DCP- Discharge Planning Updated by [email or web address]: Jenni Michaud on 11/20/19 10:[address] Patient Name: ANDRE MITTAL Admission Status: ER Accout number: [id number] Admission Date: 11-10-2019 : 1955 Admission Diagnosis:SYNCOPE AND COLLAPSE Attending: ABI MALLORY Current LOS: 10 Anticipated DC Date: Planned Disposition: Home Primary Insurance: [facility] Discharge Planning Comments: CM met with patient to complete initial dc planning assessment. CM educated patient on the CM role and verbal consent given by patient to complete assessment. Patient lives at home with family. Patient is independent. At discharge patient plans to return home and feels this is a safe discharge. CM discussed availability of home health, rehab services, and medical equipment. Patient will have family to transport home. Patient denied known discharge needs at this time. CM will continue to follow and will assist as needed with dc plans/needs. Bridal Gown Fitter: Jenni Michaud DCP- Discharge Planning Updated by [email or web address]: Jenni Michaud on 11/10/19 3:[address] [facility]. Kimber stated with [facility] that they did not have to be notified. DCPIA - Discharge Planning Initial Assessment Updated by [email or web address]: Jenni Michaud on 11/20/19 11:00 pm * Is the patient Alert and Oriented? Yes * How many steps to enter\exit or inside your home? * PCP [facility] * Pharmacy [facility] * Preadmission Environment Home with Family * ADLs Independent * Equipment None * List name and contact numbers for known caregivers / representatives who currently or will assist patient after discharge: QUENTIN MITTAL - - [phone] * Verbal permission to speak to the caregivers and representatives has been obtained from the patient. Yes * Community resources currently utilized None * Additional services required to return to the preadmission environment? No * Can the patient safely return to the preadmission environment? Yes * Has this patient been hospitalized within the prior 30 days at any hospital? No Patient Name: ANDRE MITTAL Page [id number] at 2304 All edits/amendments must be made on the electronic document DICTATION DATE: 11/20/192302 COAGULATION OPERATOR: DELFINO 11/20/192302 RPT#: [id number] DC DATE:11/20/19 STATUS: DIS IN [facility] [address] [place] [address] END OF REPORT
== END 2019-11-20 11:50 | disposition home or self-care (01) | DRG 234 ==
LOC: D.ER 01:27 → D.M2 02:41 → OBSVTIME 02:41 → D.CVICU 11:22 → D.M2 11:22 → D.CVICU 11-13 20:20
PROVIDERS: Emergency Medicine; Internal Medicine Interventional Cardiology; Thoracic Surgery (Cardiothoracic Vascular Surgery); ADMIT Family Medicine; ATTEND Family Medicine
PROC: B2111ZZ Fluoroscopy of Multiple Coronary Arteries using Low Osmolar Contrast (ICD-10-PCS; 2019-11-10)
PROC: B3151ZZ Fluoroscopy of Bilateral Common Carotid Arteries using Low Osmolar Contrast (ICD-10-PCS; 2019-11-10)
PROC: B2151ZZ Fluoroscopy of Left Heart using Low Osmolar Contrast (ICD-10-PCS; 2019-11-10)
PROC: 4A023N7 Measurement of Cardiac Sampling and Pressure, Left Heart, Percutaneous Approach (ICD-10-PCS; 2019-11-10)
PROC: 021209W Bypass Coronary Artery, Three Arteries from Aorta with Autologous Venous Tissue, Open Approach (ICD-10-PCS; 2019-11-14)
PROC: 06BP4ZZ Excision of Right Saphenous Vein, Percutaneous Endoscopic Approach (ICD-10-PCS; 2019-11-14)
PROC: 5A1221Z Performance of Cardiac Output, Continuous (ICD-10-PCS; 2019-11-14)
PROC: B24BZZ4 Ultrasonography of Heart with Aorta, Transesophageal (ICD-10-PCS; 2019-11-14)
PROC: 02100Z9 Bypass Coronary Artery, One Artery from Left Internal Mammary, Open Approach (ICD-10-PCS; principal; 2019-11-14 07:30)
DX: I21.4 Non-ST elevation (NSTEMI) myocardial infarction (principal); I10 Essential (primary) hypertension; R55 Syncope and collapse; E78.5 Hyperlipidemia, unspecified; I25.10 Atherosclerotic heart disease of native coronary artery without angina pectoris; H54.7 Unspecified visual loss; I65.22 Occlusion and stenosis of left carotid artery; M19.90 Unspecified osteoarthritis, unspecified site; D64.9 Anemia, unspecified

== ENCOUNTER → 2019-12-12 12:05 | Outpatient (CLI) | payer OTHER ==
[2019-11-11 14:17] VITALS: BMI 20.5
[~2019-12-12 12:05] MED LIST: AMIODARONE HCL200 MG PO; BAYER CHEWABLE81 MG PO; LISINOPRIL2.5 MG PO; LISINOPRIL20 MG PO; LOPRESSOR25 MG PO; PERCOCET 5-3251 TAB PO
[2019-12-12 12:57] LABS: BASOPHILS 0.5 % (0-2); EOSINOPHILS 10.3 % (0-7); HEMATOCRIT 40.6 % (36.0-48.0); HEMOGLOBIN 13.2 g/dL (12-16); IMMATURE GRANULOCYTES 0.1 % (0-5); LYMPHOCYTES 25.2 % (15-50); MCH 29.7 pg (26.0-34.0); MCHC 32.5 g/dL (31.0-37.0); MCV 91.2 fL (80.0-100.0); MEAN PLATELET VOLUME 9.5 fL (7.4-10.4); MONOCYTES 5.9 % (2-11); PLATELET COUNT 244 10x3/uL (130-400); RBC 4.45 10x6/uL (4.00-5.40); RDW 13.6 % (11.5-14.5); WBC 8.3 10x3/uL (4.8-10.8)
[2019-12-12 12:58] LABS: ANION GAP 11.7 mmol/L (8-16); CARBON DIOXIDE 29.5 mmol/L (21.0-32.0); CREATININE - SERUM 1.3 mg/dL (0.6-1.3); POTASSIUM - SERUM 4.2 mmol/L (3.5-5.1)
== END | disposition home or self-care (01) ==
LOC: D.RAD 12:05
PROVIDERS: ATTEND Thoracic Surgery (Cardiothoracic Vascular Surgery)
DX: Z95.1 Presence of aortocoronary bypass graft (principal)